=== PATIENT | male | born 1995 | race African-American/Black ===

== ENCOUNTER 2016-09-13 17:24 | Emergency (ER) | payer OTHER ==
[~2016-09-13] VITALS: Ht 172.7 cm; Wt 100.0 kg
[2016-09-13 17:27] VITALS: BP 149/98
[2016-09-13 21:23] LABS: CLARITY URINE CLEAR (CLEAR); COLOR URINE YELLOW (YELLOW); GLUCOSE URINE NEGATIVE (NEGATIVE); KETONES URINE NEGATIVE (NEGATIVE); LEUKOCYTE ESTERASE URINE NEGATIVE (NEGATIVE); NITRITE URINE NEGATIVE (NEGATIVE); OCCULT BLOOD URINE NEGATIVE (NEGATIVE); PH URINE 7.5 (4.5-8.0); PROTEIN URINE NEGATIVE (NEGATIVE); SPECIFIC GRAVITY URINE 1.019 (1.005-1.030)
== END 2016-09-13 22:06 | disposition home or self-care (01) ==
LOC: ER 17:26
DX: A74.9 Chlamydial infection, unspecified (principal)
CPT/HCPCS: 81003; 99283

== ENCOUNTER 2017-11-14 22:47 | Emergency (ER) | payer MEDICAID, OTHER ==
[~2017-11-14] VITALS: Ht 177.8 cm; Wt 98.7 kg
[2017-11-14 23:07] VITALS: BP 142/98
== END 2017-11-15 02:30 | disposition left against medical advice (07) ==
LOC: ER 11-15 02:21
DX: Z53.21 Procedure and treatment not carried out due to patient leaving prior to being seen by health care provider (principal); J45.909 Unspecified asthma, uncomplicated; Z88.6 Allergy status to analgesic agent